=== PATIENT | female | born 1950 | race Two or more races ===

== ENCOUNTER 2022-09-25 10:46 | Inpatient (IN) | payer OTHER ==
[~2022-09-25 10:46] MED LIST: ATOR20TA86 PO; CARB-114 PO; LEVO-72 PO; LOSA-382 PO
[2022-09-25 12:51] LABS: BASOPHILS % (AUTO) 0.3 % (0.0-2.0); EOSINOPHILS % (AUTO) 0.7 % (1.0-6.0); HEMATOCRIT 26.9 % (36-46); HEMOGLOBIN 8.4 g/dL (12.0-16.0); LYMPHOCYTES # (AUTO) 1.3 K/uL (1.0-4.8); LYMPHOCYTES % (AUTO) 12.3 % (22.0-44.0); MEAN CORPUSCULAR HEMOGLOBIN 23.5 pg (26.0-34.0); MEAN CORPUSCULAR HGB CONC 31.4 G/dL (31.0-37.0); MEAN CORPUSCULAR VOLUME 75 fL (80-100); MONOCYTES # (AUTO) 0.6 K/uL (0.1-1.0); MONOCYTES % (AUTO) 5.4 % (2.0-9.0); NEUTROPHILS # (AUTO) 8.6 K/uL (1.8-7.7); NEUTROPHILS % (AUTO) 81.3 % (40.0-70.0); PLATELET COUNT (AUTO) 403 K/uL (150-450); RED BLOOD CELL COUNT(AUTO) 3.59 MIL/uL (4.00-5.20); RED CELL DISTRIBUTION WIDTH 30.9 % (11.5-14.5)
[2022-09-25 12:51] LABS: COVID AG,FIA SOURCE NASAL SWAB
[2022-09-25 13:05] LABS: INR 0.9 (0.9-1.1); PROTHROMBIN TIME 10.1 SEC (9.4-11.6)
[2022-09-25] MEDS ORDERED: SODIUM CHLORIDE 0.9% 500 ML IV ONE (13:15)
[2022-09-25 13:16] LABS: ANION GAP 5 mmol/L (8-16); CALCIUM, TOTAL 8.2 mg/dL (8.8-10.5); CARBON DIOXIDE 26 mmol/L (22-29); CHLORIDE 104 mmol/L (98-107); GLUCOSE,RANDOM 88 mg/dL (70-110); POTASSIUM 3.3 mmol/L (3.5-5.1); SODIUM SERUM 135 mmol/L (136-145); UREA NITROGEN, BLOOD 15 mg/dL (7-18)
[2022-09-25 13:18] LABS: GLOMERULAR FILTR. RATE CALC > 60 mL/min (>60)
[2022-09-25 13:25] LABS: ALANINE AMINOTRANSFERASE 16 U/L (12-78); ALBUMIN 2.1 g/dL (3.4-5.0); ALKALINE PHOSPHATASE 95 U/L (46-116); ASPARTATE AMINOTRANSFERASE 33 U/L (15-37); BILIRUBIN,TOTAL 0.3 mg/dL (0.1-1.0); TOTAL PROTEIN, SERUM 6.2 g/dL (6.4-8.2)
[2022-09-25 13:26] LABS: LACTIC ACID 2.6 mmol/L (0.4-2.0)
[2022-09-25 13:33] LABS: INFLUENZA TYPE A NEGATIVE FOR TYPE A (NEGATIVE); INFLUENZA TYPE B NEGATIVE FOR TYPE B (NEGATIVE)
[2022-09-25 18:37] LABS: APPEARANCE,URINE CLEAR (CLEAR); BILIRUBIN,URINE NEGATIVE (NEGATIVE); GLUCOSE, URINE (UA) NEGATIVE (NEGATIVE); KETONES,URINE NEGATIVE (NEGATIVE); LEUKOCYTE ESTERASE ,URINE NEGATIVE (NEGATIVE); NITRATE,URINE POSITIVE (NEGATIVE); OCCULT BLOOD,URINE NEGATIVE (NEGATIVE); PH,URINE 5.5 (5.0-8.0); PROTEIN,URINE NEGATIVE (NEGATIVE); SPECIFIC GRAVITIY, URINE 1.008 (1.003-1.030); UROBILINOGEN,URINE <=1.0 mg/dL (<=1.0)
[2022-09-25 18:50] LABS: BACTERIA,URINE Moderate /HPF (None Seen); RBC,URINE 0-2 /HPF (0-2); SQUAMOUS EPITHELIAL CELL,UR Few /LPF (None Seen); WBC,URINE 0-2 /HPF (0-5)
[2022-09-25] MEDS ORDERED: ALBUTEROL SULFATE 2.5 MG/0.5 ML NEB SOLUTION NEB PRN (21:30)
[2022-09-25] MEDS ORDERED: HYDROCODONE/ACETAMINOPHEN 5-325 MG TABLET PO PRN (21:30)
[2022-09-25] MEDS ORDERED: MAGNESIUM HYDROXIDE SUSPENSION 30 ML UDCUP PO PRN (21:30)
[2022-09-25] MEDS ORDERED: BISACODYL 10 MG RECTAL RECTAL SUPPOSITORY PR PRN (21:30)
[2022-09-25] MEDS ORDERED: IPRATROPIUM BROMIDE 0.5 MG/2.5 ML NEB SOLUTION NEB PRN (21:30)
[2022-09-25] MEDS ORDERED: ONDANSETRON HCL 4 MG/2 ML VIAL IVP PRN (21:30)
[2022-09-25] MEDS ORDERED: MORPHINE SULFATE 2 MG/ML SYRINGE IVP PRN (21:30)
[2022-09-25 21:44] LABS: HEMATOCRIT 24.1 % (36-46); HEMOGLOBIN 7.6 g/dL (12.0-16.0)
[2022-09-25] MEDS: CefTRIAXone 1 GM/DEXTROSE 50 ML IV SCH (22:35)
[2022-09-25] MEDS: ZOLPIDEM TARTRATE 5 MG TABLET PO PRN (22:36)
[2022-09-25] MEDS: PANTOPRAZOLE SODIUM 80 MG in SODIUM CHLORIDE 0.9% 100 ML IV SCH (22:42)
[2022-09-26 08:29] LABS: BASOPHILS % (AUTO) 1.1 % (0.0-2.0); HEMATOCRIT 24.8 % (36-46); HEMOGLOBIN 7.9 g/dL (12.0-16.0); LYMPHOCYTES # (AUTO) 1.3 K/uL (1.0-4.8); MEAN CORPUSCULAR HEMOGLOBIN 23.9 pg (26.0-34.0); MEAN CORPUSCULAR HGB CONC 31.9 G/dL (31.0-37.0); MEAN CORPUSCULAR VOLUME 75 fL (80-100); MONOCYTES # (AUTO) 0.5 K/uL (0.1-1.0); MONOCYTES % (AUTO) 6.5 % (2.0-9.0); NEUTROPHILS # (AUTO) 5.7 K/uL (1.8-7.7); NEUTROPHILS % (AUTO) 73.4 % (40.0-70.0); PLATELET COUNT (AUTO) 363 K/uL (150-450); RED BLOOD CELL COUNT(AUTO) 3.31 MIL/uL (4.00-5.20); RED CELL DISTRIBUTION WIDTH 29.9 % (11.5-14.5)
[2022-09-26 08:37] LABS: ALANINE AMINOTRANSFERASE 28 U/L (12-78); ALBUMIN 1.8 g/dL (3.4-5.0); ALKALINE PHOSPHATASE 82 U/L (46-116); ANION GAP 4 mmol/L (8-16); ASPARTATE AMINOTRANSFERASE 23 U/L (15-37); BILIRUBIN,TOTAL 0.3 mg/dL (0.1-1.0); CALCIUM, TOTAL 7.9 mg/dL (8.8-10.5); CARBON DIOXIDE 28 mmol/L (22-29); CHLORIDE 107 mmol/L (98-107); CREATININE 0.66 mg/dL (0.60-1.30); GLUCOSE,RANDOM 75 mg/dL (70-110); SODIUM SERUM 139 mmol/L (136-145); TOTAL PROTEIN, SERUM 5.5 g/dL (6.4-8.2); UREA NITROGEN, BLOOD 11 mg/dL (7-18)
[2022-09-26 08:42] LABS: GLOMERULAR FILTR. RATE CALC > 60 mL/min (>60); POTASSIUM 2.9 mmol/L (3.5-5.1)
[2022-09-26] MEDS: CARBIDOPA/LEVODOPA 25-100 MG ER TABLET PO SCH ×3 (08:51→22:11)
[2022-09-26] MEDS: PANTOPRAZOLE SODIUM 80 MG in SODIUM CHLORIDE 0.9% 100 ML IV SCH ×2 (09:02→19:50)
[2022-09-26] MEDS: POTASSIUM CHL 10 MEQ/WATER 50 ML IV SCH ×4 (09:07→12:25)
[2022-09-26] MEDS ORDERED: SODIUM CHLORIDE 0.9% 1,000 ML ONE (11:21)
[2022-09-26 13:12] VITALS: BP 118/63
[2022-09-26 14:36] LABS: HEMATOCRIT 24.3 % (36-46); HEMOGLOBIN 7.4 g/dL (12.0-16.0)
[2022-09-26] MEDS ORDERED: IOHEXOL 350 MG/ML 100 ML VIAL ONE (14:56)
[2022-09-26] MEDS ORDERED: SODIUM CHLORIDE 0.9% 100 ML ONE (14:57)
[2022-09-26 20:12] VITALS: BP 121/64
[2022-09-26] MEDS: CefTRIAXone 1 GM/DEXTROSE 50 ML IV SCH (22:11)
[2022-09-26] MEDS: ATORVASTATIN CALCIUM 20 MG TABLET PO SCH (22:11)
[2022-09-27] VITALS (10 sets, daily range): BP systolic 79–122; BP diastolic 41–70
[2022-09-27] MEDS ORDERED: PROPOFOL 1% 20 ML VIAL IVP ONE (05:43)
[2022-09-27] MEDS: PANTOPRAZOLE SODIUM 80 MG in SODIUM CHLORIDE 0.9% 100 ML IV SCH (05:45)
[2022-09-27 07:20] LABS: BASOPHILS % (AUTO) 0.9 % (0.0-2.0); EOSINOPHILS % (AUTO) 1.9 % (1.0-6.0); HEMATOCRIT 27.5 % (36-46); HEMOGLOBIN 8.7 g/dL (12.0-16.0); LYMPHOCYTES # (AUTO) 0.9 K/uL (1.0-4.8); MEAN CORPUSCULAR HEMOGLOBIN 23.9 pg (26.0-34.0); MEAN CORPUSCULAR HGB CONC 31.7 G/dL (31.0-37.0); MEAN CORPUSCULAR VOLUME 75 fL (80-100); MONOCYTES # (AUTO) 0.5 K/uL (0.1-1.0); MONOCYTES % (AUTO) 6.7 % (2.0-9.0); NEUTROPHILS # (AUTO) 5.2 K/uL (1.8-7.7); NEUTROPHILS % (AUTO) 76.5 % (40.0-70.0); PLATELET COUNT (AUTO) 386 K/uL (150-450); RED BLOOD CELL COUNT(AUTO) 3.66 MIL/uL (4.00-5.20)
[2022-09-27 07:28] LABS: ALANINE AMINOTRANSFERASE 8 U/L (12-78); ALBUMIN 1.9 g/dL (3.4-5.0); ALKALINE PHOSPHATASE 86 U/L (46-116); ANION GAP 9 mmol/L (8-16); ASPARTATE AMINOTRANSFERASE 19 U/L (15-37); BILIRUBIN,TOTAL 0.4 mg/dL (0.1-1.0); CALCIUM, TOTAL 8.4 mg/dL (8.8-10.5); CARBON DIOXIDE 25 mmol/L (22-29); CHLORIDE 105 mmol/L (98-107); CREATININE 0.67 mg/dL (0.60-1.30); GLOMERULAR FILTR. RATE CALC > 60 mL/min (>60); GLUCOSE,RANDOM 78 mg/dL (70-110); POTASSIUM 3.6 mmol/L (3.5-5.1); SODIUM SERUM 139 mmol/L (136-145); TOTAL PROTEIN, SERUM 5.9 g/dL (6.4-8.2); UREA NITROGEN, BLOOD 11 mg/dL (7-18)
[2022-09-27] MEDS: CARBIDOPA/LEVODOPA 25-100 MG ER TABLET PO SCH ×3 (08:21→20:55)
[2022-09-27] MEDS: ACETAMINOPHEN 325 MG TABLET PO PRN (08:21)
[2022-09-27] MEDS ORDERED: SODIUM CHLORIDE 0.9% 500 ML IV ONE ×3 (12:50→15:45)
[2022-09-27] MEDS: PANTOPRAZOLE SODIUM 40 MG DR TABLET PO SCH (20:55)
[2022-09-27] MEDS: ZOLPIDEM TARTRATE 5 MG TABLET PO PRN (20:55)
[2022-09-27] MEDS: ATORVASTATIN CALCIUM 20 MG TABLET PO SCH (20:55)
[2022-09-27] MEDS: CefTRIAXone 1 GM/DEXTROSE 50 ML IV SCH (20:55)
[2022-09-27] MEDS ORDERED: SODIUM CHLORIDE 0.9% 1,000 ML ONE (21:27)
[2022-09-28 00:05] VITALS: BP 85/55
[2022-09-28] MEDS ORDERED: SODIUM CHLORIDE 0.9% 500 ML IV ONE (00:30)
[2022-09-28 04:06] VITALS: BP 93/59
[2022-09-28 06:14] LABS: BASOPHILS % (AUTO) 0.2 % (0.0-2.0); EOSINOPHILS % (AUTO) 1.4 % (1.0-6.0); HEMATOCRIT 25.6 % (36-46); LYMPHOCYTES % (AUTO) 14.1 % (22.0-44.0); MEAN CORPUSCULAR HEMOGLOBIN 23.8 pg (26.0-34.0); MEAN CORPUSCULAR HGB CONC 31.4 G/dL (31.0-37.0); MEAN CORPUSCULAR VOLUME 76 fL (80-100); MONOCYTES # (AUTO) 0.5 K/uL (0.1-1.0); MONOCYTES % (AUTO) 6.5 % (2.0-9.0); NEUTROPHILS # (AUTO) 5.4 K/uL (1.8-7.7); NEUTROPHILS % (AUTO) 77.8 % (40.0-70.0); PLATELET COUNT (AUTO) 279 K/uL (150-450); RED BLOOD CELL COUNT(AUTO) 3.38 MIL/uL (4.00-5.20); RED CELL DISTRIBUTION WIDTH 29.4 % (11.5-14.5)
[2022-09-28 06:45] LABS: ALANINE AMINOTRANSFERASE 5 U/L (12-78); ALBUMIN 1.8 g/dL (3.4-5.0); ALKALINE PHOSPHATASE 77 U/L (46-116); ANION GAP 6 mmol/L (8-16); ASPARTATE AMINOTRANSFERASE 18 U/L (15-37); BILIRUBIN,TOTAL 0.2 mg/dL (0.1-1.0); CALCIUM, TOTAL 7.9 mg/dL (8.8-10.5); CARBON DIOXIDE 25 mmol/L (22-29); CHLORIDE 107 mmol/L (98-107); CREATININE 0.69 mg/dL (0.60-1.30); GLUCOSE,RANDOM 109 mg/dL (70-110); POTASSIUM 3.2 mmol/L (3.5-5.1); SODIUM SERUM 138 mmol/L (136-145); TOTAL PROTEIN, SERUM 5.6 g/dL (6.4-8.2); UREA NITROGEN, BLOOD 9 mg/dL (7-18)
[2022-09-28 06:52] LABS: GLOMERULAR FILTR. RATE CALC > 60 mL/min (>60)
[2022-09-28] MEDS: PANTOPRAZOLE SODIUM 40 MG DR TABLET PO SCH ×2 (08:47→20:44)
[2022-09-28] MEDS: CARBIDOPA/LEVODOPA 25-100 MG ER TABLET PO SCH ×3 (08:48→22:07)
[2022-09-28 09:15] VITALS: BP 116/60
[2022-09-28] MEDS ORDERED: POTASSIUM CHLORIDE 10% 40 MEQ/30 ML LIQUID UDCUP PO ONE (09:15)
[2022-09-28 12:05] VITALS: BP 100/60
[2022-09-28 16:55] VITALS: BP 105/68
[2022-09-28] MEDS: CefTRIAXone 1 GM/DEXTROSE 50 ML IV SCH (20:44)
[2022-09-28] MEDS: ATORVASTATIN CALCIUM 20 MG TABLET PO SCH (20:44)
[2022-09-28 21:12] VITALS: BP 98/54
[2022-09-28] MEDS: ACETAMINOPHEN 325 MG TABLET PO PRN (22:10)
[2022-09-29] VITALS (7 sets, daily range): BP systolic 98–120; BP diastolic 55–76
[2022-09-29 06:27] LABS: EOSINOPHILS % (AUTO) 3.7 % (1.0-6.0); HEMATOCRIT 23.4 % (36-46); HEMOGLOBIN 7.4 g/dL (12.0-16.0); LYMPHOCYTES % (AUTO) 18.2 % (22.0-44.0); MEAN CORPUSCULAR HEMOGLOBIN 23.4 pg (26.0-34.0); MEAN CORPUSCULAR HGB CONC 31.6 G/dL (31.0-37.0); MEAN CORPUSCULAR VOLUME 74 fL (80-100); MONOCYTES # (AUTO) 0.4 K/uL (0.1-1.0); MONOCYTES % (AUTO) 7.2 % (2.0-9.0); NEUTROPHILS # (AUTO) 3.8 K/uL (1.8-7.7); NEUTROPHILS % (AUTO) 69.9 % (40.0-70.0); PLATELET COUNT (AUTO) 256 K/uL (150-450); RED BLOOD CELL COUNT(AUTO) 3.15 MIL/uL (4.00-5.20); RED CELL DISTRIBUTION WIDTH 29.4 % (11.5-14.5)
[2022-09-29] MEDS: PANTOPRAZOLE SODIUM 40 MG DR TABLET PO SCH ×2 (08:24→21:17)
[2022-09-29] MEDS: CARBIDOPA/LEVODOPA 25-100 MG ER TABLET PO SCH ×3 (08:24→21:17)
[2022-09-29] MEDS ORDERED: ATOR40TA71 PO (10:59)
[2022-09-29] MEDS ORDERED: FERR-89 PO (10:59)
[2022-09-29] MEDS ORDERED: CHOL25TA4 PO (10:59)
[2022-09-29] MEDS ORDERED: CARB1TAB33 PO (10:59)
[2022-09-29 15:33] LABS: ALANINE AMINOTRANSFERASE 10 U/L (12-78); ALBUMIN 1.7 g/dL (3.4-5.0); ALKALINE PHOSPHATASE 73 U/L (46-116); ANION GAP 9 mmol/L (8-16); ASPARTATE AMINOTRANSFERASE 20 U/L (15-37); BILIRUBIN,TOTAL 0.2 mg/dL (0.1-1.0); CALCIUM, TOTAL 7.8 mg/dL (8.8-10.5); CARBON DIOXIDE 24 mmol/L (22-29); CHLORIDE 110 mmol/L (98-107); CREATININE 0.62 mg/dL (0.60-1.30); GLOMERULAR FILTR. RATE CALC > 60 mL/min (>60); GLUCOSE,RANDOM 97 mg/dL (70-110); POTASSIUM 3.4 mmol/L (3.5-5.1); SODIUM SERUM 143 mmol/L (136-145); TOTAL PROTEIN, SERUM 5.3 g/dL (6.4-8.2); UREA NITROGEN, BLOOD 7 mg/dL (7-18)
[2022-09-29] MEDS: CefTRIAXone 1 GM/DEXTROSE 50 ML IV SCH (21:17)
[2022-09-29] MEDS: ATORVASTATIN CALCIUM 20 MG TABLET PO SCH (21:17)
[2022-09-30 04:36] VITALS: BP 109/68
[2022-09-30 07:06] LABS: ANION GAP 4 mmol/L (8-16); CALCIUM, TOTAL 7.9 mg/dL (8.8-10.5); CARBON DIOXIDE 32 mmol/L (22-29); CHLORIDE 106 mmol/L (98-107); CREATININE 0.58 mg/dL (0.60-1.30); GLUCOSE,RANDOM 94 mg/dL (70-110); POTASSIUM 3.8 mmol/L (3.5-5.1); UREA NITROGEN, BLOOD 6 mg/dL (7-18)
[2022-09-30 07:08] LABS: GLOMERULAR FILTR. RATE CALC > 60 mL/min (>60); SODIUM SERUM 142 mmol/L (136-145)
[2022-09-30 08:20] VITALS: BP 126/76
[2022-09-30] MEDS: CARBIDOPA/LEVODOPA 25-100 MG ER TABLET PO SCH ×3 (08:44→20:44)
[2022-09-30] MEDS: PANTOPRAZOLE SODIUM 40 MG DR TABLET PO SCH ×2 (08:45→20:44)
[2022-09-30 08:49] LABS: ALANINE AMINOTRANSFERASE 9 U/L (12-78); ALBUMIN 1.8 g/dL (3.4-5.0); ALKALINE PHOSPHATASE 77 U/L (46-116); ASPARTATE AMINOTRANSFERASE 23 U/L (15-37); BILIRUBIN,TOTAL 0.2 mg/dL (0.1-1.0); TOTAL PROTEIN, SERUM 5.7 g/dL (6.4-8.2)
[2022-09-30 10:17] LABS: BASOPHILS % (AUTO) 0.6 % (0.0-2.0); EOSINOPHILS % (AUTO) 5.8 % (1.0-6.0); HEMATOCRIT 25.1 % (36-46); HEMOGLOBIN 7.8 g/dL (12.0-16.0); LYMPHOCYTES # (AUTO) 1.1 K/uL (1.0-4.8); LYMPHOCYTES % (AUTO) 19.5 % (22.0-44.0); MEAN CORPUSCULAR HEMOGLOBIN 23.3 pg (26.0-34.0); MEAN CORPUSCULAR VOLUME 75 fL (80-100); MONOCYTES # (AUTO) 0.4 K/uL (0.1-1.0); MONOCYTES % (AUTO) 7.4 % (2.0-9.0); NEUTROPHILS # (AUTO) 3.7 K/uL (1.8-7.7); NEUTROPHILS % (AUTO) 66.7 % (40.0-70.0); PLATELET COUNT (AUTO) 271 K/uL (150-450); RED BLOOD CELL COUNT(AUTO) 3.35 MIL/uL (4.00-5.20); RED CELL DISTRIBUTION WIDTH 28.3 % (11.5-14.5)
[2022-09-30 11:30] VITALS: BP 118/70
[2022-09-30 20:25] VITALS: BP 101/62
[2022-09-30] MEDS: CefTRIAXone 1 GM/DEXTROSE 50 ML IV SCH (20:43)
[2022-09-30] MEDS: ATORVASTATIN CALCIUM 20 MG TABLET PO SCH (20:44)
[2022-10-01] VITALS (7 sets, daily range): BP systolic 95–129; BP diastolic 53–75
[2022-10-01 06:23] LABS: BASOPHILS % (AUTO) 1.3 % (0.0-2.0); EOSINOPHILS % (AUTO) 3.9 % (1.0-6.0); HEMATOCRIT 25.3 % (36-46); HEMOGLOBIN 7.9 g/dL (12.0-16.0); LYMPHOCYTES # (AUTO) 1.3 K/uL (1.0-4.8); LYMPHOCYTES % (AUTO) 21.6 % (22.0-44.0); MEAN CORPUSCULAR HEMOGLOBIN 23.1 pg (26.0-34.0); MEAN CORPUSCULAR HGB CONC 31.2 G/dL (31.0-37.0); MEAN CORPUSCULAR VOLUME 74 fL (80-100); MONOCYTES # (AUTO) 0.5 K/uL (0.1-1.0); MONOCYTES % (AUTO) 8.8 % (2.0-9.0); NEUTROPHILS # (AUTO) 3.8 K/uL (1.8-7.7); NEUTROPHILS % (AUTO) 64.4 % (40.0-70.0); PLATELET COUNT (AUTO) 283 K/uL (150-450); RED BLOOD CELL COUNT(AUTO) 3.41 MIL/uL (4.00-5.20); RED CELL DISTRIBUTION WIDTH 28.5 % (11.5-14.5)
[2022-10-01 06:47] LABS: ALANINE AMINOTRANSFERASE 7 U/L (12-78); ALBUMIN 1.8 g/dL (3.4-5.0); ALKALINE PHOSPHATASE 76 U/L (46-116); ANION GAP 6 mmol/L (8-16); ASPARTATE AMINOTRANSFERASE 17 U/L (15-37); BILIRUBIN,TOTAL 0.2 mg/dL (0.1-1.0); CARBON DIOXIDE 27 mmol/L (22-29); CHLORIDE 106 mmol/L (98-107); GLUCOSE,RANDOM 91 mg/dL (70-110); POTASSIUM 3.6 mmol/L (3.5-5.1); TOTAL PROTEIN, SERUM 5.7 g/dL (6.4-8.2); UREA NITROGEN, BLOOD 7 mg/dL (7-18)
[2022-10-01 07:12] LABS: GLOMERULAR FILTR. RATE CALC > 60 mL/min (>60); SODIUM SERUM 139 mmol/L (136-145)
[2022-10-01] MEDS: PANTOPRAZOLE SODIUM 40 MG DR TABLET PO SCH ×2 (09:17→20:17)
[2022-10-01] MEDS: CARBIDOPA/LEVODOPA 25-100 MG ER TABLET PO SCH ×3 (11:05→20:17)
[2022-10-01] MEDS: FERROUS SULFATE 325 MG EC TABLET PO SCH (18:21)
[2022-10-01] MEDS: CefTRIAXone 1 GM/DEXTROSE 50 ML IV SCH (20:17)
[2022-10-01] MEDS: ATORVASTATIN CALCIUM 20 MG TABLET PO SCH (20:17)
[2022-10-01] MEDS: ACETAMINOPHEN 325 MG TABLET PO PRN (20:18)
[2022-10-01] MEDS ORDERED: SODIUM CHLORIDE 0.9% 100 ML ONE (20:24)
[2022-10-02 04:28] VITALS: BP 112/70
[2022-10-02 06:34] LABS: BASOPHILS % (AUTO) 2.8 % (0.0-2.0); EOSINOPHILS % (AUTO) 4.6 % (1.0-6.0); HEMATOCRIT 26.8 % (36-46); HEMOGLOBIN 8.4 g/dL (12.0-16.0); LYMPHOCYTES # (AUTO) 1.1 K/uL (1.0-4.8); LYMPHOCYTES % (AUTO) 22.3 % (22.0-44.0); MEAN CORPUSCULAR HEMOGLOBIN 23.2 pg (26.0-34.0); MEAN CORPUSCULAR HGB CONC 31.2 G/dL (31.0-37.0); MEAN CORPUSCULAR VOLUME 74 fL (80-100); MONOCYTES # (AUTO) 0.4 K/uL (0.1-1.0); MONOCYTES % (AUTO) 8.3 % (2.0-9.0); NEUTROPHILS # (AUTO) 3.2 K/uL (1.8-7.7); PLATELET COUNT (AUTO) 290 K/uL (150-450); RED BLOOD CELL COUNT(AUTO) 3.61 MIL/uL (4.00-5.20); RED CELL DISTRIBUTION WIDTH 27.8 % (11.5-14.5)
[2022-10-02 07:00] LABS: ALANINE AMINOTRANSFERASE 13 U/L (12-78); ALBUMIN 1.9 g/dL (3.4-5.0); ALKALINE PHOSPHATASE 83 U/L (46-116); ANION GAP 5 mmol/L (8-16); ASPARTATE AMINOTRANSFERASE 22 U/L (15-37); BILIRUBIN,TOTAL 0.2 mg/dL (0.1-1.0); CALCIUM, TOTAL 8.2 mg/dL (8.8-10.5); CARBON DIOXIDE 29 mmol/L (22-29); CHLORIDE 109 mmol/L (98-107); CREATININE 0.61 mg/dL (0.60-1.30); GLUCOSE,RANDOM 95 mg/dL (70-110); POTASSIUM 3.9 mmol/L (3.5-5.1); SODIUM SERUM 143 mmol/L (136-145); UREA NITROGEN, BLOOD 6 mg/dL (7-18)
[2022-10-02 07:04] LABS: GLOMERULAR FILTR. RATE CALC > 60 mL/min (>60)
[2022-10-02 08:30] VITALS: BP 121/75
[2022-10-02] MEDS: CARBIDOPA/LEVODOPA 25-100 MG ER TABLET PO SCH ×3 (08:44→20:05)
[2022-10-02] MEDS: PANTOPRAZOLE SODIUM 40 MG DR TABLET PO SCH ×2 (08:44→20:05)
[2022-10-02] MEDS: FERROUS SULFATE 325 MG EC TABLET PO SCH ×3 (08:44→18:23)
[2022-10-02] MEDS ORDERED: DEXTROSE 5%-0.45% SODIUM CHL 500 ML IV ONE (09:45)
[2022-10-02] MEDS ORDERED: FentaNYL CITRATE PF 100 MCG/2 ML VIAL ONE (12:06)
[2022-10-02] MEDS ORDERED: MIDAZOLAM HCL 2 MG/2 ML VIAL ONE (12:06)
[2022-10-02] MEDS ORDERED: IOHEXOL 350 MG/ML 100 ML VIAL ONE (12:07)
[2022-10-02] MEDS ORDERED: LIDOCAINE/PF 2% 5 ML VIAL ONE ×2 (12:07→13:06)
[2022-10-02] MEDS ORDERED: MIDAZOLAM HCL 2 MG/2 ML VIAL IVP ONE (12:40)
[2022-10-02] MEDS ORDERED: FentaNYL CITRATE PF 100 MCG/2 ML VIAL IVP ONE ×2 (13:05→14:30)
[2022-10-02 14:10] VITALS: BP 120/71
[2022-10-02 14:30] VITALS: BP 115/68
[2022-10-02 18:00] VITALS: BP 124/59
[2022-10-02] MEDS: ATORVASTATIN CALCIUM 20 MG TABLET PO SCH (20:05)
[2022-10-02 20:32] VITALS: BP 91/63
[2022-10-03 00:42] VITALS: BP 97/63
[2022-10-03 05:48] VITALS: BP 125/71
[2022-10-03 07:15] VITALS: BP 116/71
[2022-10-03] MEDS: FERROUS SULFATE 325 MG EC TABLET PO SCH ×2 (08:30→13:04)
[2022-10-03] MEDS: PANTOPRAZOLE SODIUM 40 MG DR TABLET PO SCH (08:30)
[2022-10-03] MEDS: CARBIDOPA/LEVODOPA 25-100 MG ER TABLET PO SCH (08:31)
[2022-10-03] MEDS ORDERED: SODIUM CHLORIDE 0.9% 1,000 ML ONE (11:39)
[2022-10-03] MEDS ORDERED: SODIUM CHLORIDE 0.9% 0 ML ONE (11:39)
== END 2022-10-03 13:55 | disposition home or self-care (01) | DRG 240 ==
LOC: EMS 10:48 → UNDOADMIN 09-26 04:00 → 5S 09-26 04:00 → 5N 09-26 04:01
PROVIDERS: ADMIT Hospitalist; ATTEND Hospitalist
PROC: 0DB68ZX Excision of Stomach, Via Natural or Artificial Opening Endoscopic, Diagnostic (ICD-10-PCS; principal; 2022-09-26 11:50)
PROC: 06H03DZ Insertion of Intraluminal Device into Inferior Vena Cava, Percutaneous Approach (ICD-10-PCS; 2022-10-02)
DX: C16.9 Malignant neoplasm of stomach, unspecified (principal); E43 Unspecified severe protein-calorie malnutrition; I82.403 Acute embolism and thrombosis of unspecified deep veins of lower extremity, bilateral; G20 Parkinson's disease; I95.9 Hypotension, unspecified; K25.4 Chronic or unspecified gastric ulcer with hemorrhage; D63.8 Anemia in other chronic diseases classified elsewhere; D50.0 Iron deficiency anemia secondary to blood loss (chronic); E78.00 Pure hypercholesterolemia, unspecified; Z20.822 Contact with and (suspected) exposure to COVID-19; E87.6 Hypokalemia; K29.70 Gastritis, unspecified, without bleeding; N39.0 Urinary tract infection, site not specified; I10 Essential (primary) hypertension; E78.5 Hyperlipidemia, unspecified; Z68.24 Body mass index [BMI] 24.0-24.9, adult
CPT/HCPCS: 37619; 71045; 74177; 76001; 76998; 80053; 81001; 82271; 82378; 83605; 84132; 85014; 85018; 85025; 85610; 86850; 86900; 86901; 86923; 87081; 87086; 87186; 87804; 93005; 93306; 93970; 97110; 97163; 99285; C9113; J0696; J2250; J2270; J2405; J2704; J3010; J3480; J3490; J7030; J7040; J7050; Q9967; 36415-L1; 36415-TC